=== PATIENT | female | born 1950 | race Asian ===

== ENCOUNTER 2021-02-09 10:23 | Emergency (ER) | payer OTHER ==
[~2021-02-09] VITALS: Ht 154.9 cm; Wt 45.4 kg
--- NOTE | 2021-02-09 10:28 | NUR ---
Patient to bed 7 by EMS at this time.
[2021-02-09 10:37] VITALS: BP 151/122
--- NOTE | 2021-02-09 11:07 | NUR ---
PATIENT CANNOT AMBULATE TO RESTROOM. TRANSFERRED TO RESTROOM USING WHEELCHAIR.
--- NOTE | 2021-02-09 11:12 | NUR ---
RECEIVED REPORT FROM JEFF ZHOU. TRANSFER OF CARE AT THIS TIME.
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
[2021-02-09] MEDS: MECLIZINE 25 MG TAB PO ONE (12:00)
[2021-02-09] MEDS: ONDANSETRON 4 MG ODT PO ONE (12:01)
--- NOTE | 2021-02-09 13:02 | NUR ---
PT TAKEN TO CT VIA [facility]AR[facility] E.
--- NOTE | 2021-02-09 13:10 | NUR ---
PT TAKEN TO ER BED 7 VIA [facility].
[2021-02-09] MEDS: KETOROLAC 60 MG/2 ML VIAL IM ONE (13:23)
[2021-02-09] MEDS: IBUPROFEN 600 MG TAB PO ONE (13:38)
[2021-02-09] MEDS ORDERED: IBUP-2213 PO (13:44)
[2021-02-09] MEDS ORDERED: MECL-303 PO (13:44)
[2021-02-09] MEDS ORDERED: ONDA8TAB87 PO (13:44)
--- NOTE | 2021-02-09 13:57 | NUR ---
SPOKE WITH CHINO FROM [facility] SERVICE FOR VOUCHER FOR PATIENT TO BE TRANSPORTED HOME, VOUCHER# [id number] . ETA 40MINUTES.
[2021-02-09] MEDS ORDERED: KETOROLAC 60 MG/2 ML VIAL IM ONE ×2 (14:01→14:05)
== END 2021-02-09 14:17 | disposition home or self-care (01) ==
LOC: MED 10:23
DX: R42 Dizziness and giddiness (principal); R51.9 Headache, unspecified; R11.0 Nausea; I10 Essential (primary) hypertension; Z98.890 Other specified postprocedural states; Z90.49 Acquired absence of other specified parts of digestive tract
CPT/HCPCS: 70450; 81002; 99284; J8597; Q0162; J1885